=== PATIENT | female | born 1970 ===

== ENCOUNTER 2023-06-23 10:36 | Outpatient (CLI) | payer OTHER | END 2023-06-23 10:46 | disposition home or self-care (01) | LOC: RX STUDY 10:36 | PROVIDERS: ATTEND Urology | DX: N39.46 Mixed incontinence (principal); N81.10 Cystocele, unspecified | CPT/HCPCS: 51600; 74455; A9698 ==

== ENCOUNTER → 2023-06-23 12:12 | Outpatient (CLI) | payer OTHER | END | disposition home or self-care (01) | LOC: LAB 12:12 | PROVIDERS: ATTEND Radiology Diagnostic Radiology | DX: R10.30 Lower abdominal pain, unspecified (principal) ==

== ENCOUNTER 2023-06-26 11:07 | Outpatient (CLI) | payer OTHER | END 2023-06-26 11:15 | disposition home or self-care (01) | LOC: TOM 11:07 | PROVIDERS: ATTEND Urology | DX: H93.11 Tinnitus, right ear (principal); H81.10 Benign paroxysmal vertigo, unspecified ear; R51.9 Headache, unspecified | CPT/HCPCS: 70470; Q9965 ==

== ENCOUNTER 2023-11-20 15:49 | Outpatient (CLI) | payer OTHER | END 2023-11-20 15:51 | disposition home or self-care (01) | LOC: RAD 15:49 | DX: M25.50 Pain in unspecified joint (principal); M25.512 Pain in left shoulder; M25.562 Pain in left knee; M25.561 Pain in right knee ==

== ENCOUNTER 2023-11-29 11:31 | Outpatient (CLI) | payer OTHER | END 2023-11-29 11:46 | disposition home or self-care (01) | LOC: RAD 11:31 | DX: R41.89 Other symptoms and signs involving cognitive functions and awareness (principal); M79.7 Fibromyalgia; I10 Essential (primary) hypertension; M25.512 Pain in left shoulder; M75.112 Incomplete rotator cuff tear or rupture of left shoulder, not specified as traumatic | CPT/HCPCS: 70551 ==

== ENCOUNTER → 2023-11-29 13:25 | Outpatient (CLI) | payer OTHER | END | disposition home or self-care (01) | LOC: NUCLEAR 11-23 13:15 | DX: M81.8 Other osteoporosis without current pathological fracture (principal); Z13.820 Encounter for screening for osteoporosis ==